=== PATIENT | male | born 1945 | race Caucasian/White ===

== ENCOUNTER 2016-06-02 15:08 | Emergency (ER) | payer OTHER ==
[~2016-06-02] VITALS: Ht 180.3 cm; Wt 109.0 kg
[~2016-06-02 15:08] MED LIST: AFRIN 12 HOUR0.05 %; ALLOPURINOL100 MG PO; ALPHA LIPOIC A200 MG PO; AMLODIPINE5 MG PO; ASPIRIN EC81 MG PO; ATORVASTATIN CA40 MG PO; BACTRIM DS1 TAB PO; BASAGLAR K100 UNIT/M; CARVEDILOL25 MG PO; CLONIDINE0.1 MG PO; CLOPIDOGREL75 MG PO; COUMADIN5 MG PO; FERROUS SULF325 M1 PO; FISH OIL1000 MG PO; FLONASE NASAL50 MCG; FUROSEMIDE20 MG PO; LOSARTAN POT50 MG PO; MULTI VIT PO; NOVOLOG FLEXPEN SC; SODIUM BICAR325 MG PO; TAMSULOSIN0.4 MG PO; TRAMADOL HYDROC50 MG PO; VENLAFAXINE HCL75 M1 PO
[2016-06-02 17:50] LABS: HEMATOCRIT 40.8 % (39.0-50.0); HEMOGLOBIN 13.7 g/dl (14.0-18.0); IMMATURE GRANULOCYTES 0.4 % (0.0-1.0); MEAN CELL VOLUME 89.9 fL CALC (80.0-100.0); MEAN CORPUSCULAR HGB 30.2 pG CALC (26.0-32.0); MEAN CORPUSCULAR HGB CONC 33.6 g/L CALC (32.0-36.0); NEUT# 8.37 thou/uL (1.82-7.42); RED BLOOD COUNT 4.54 mill/uL (4.70-6.10); RED CELL DISTRI WIDTH 13.7 % (11.5-15.5)
[2016-06-02 18:18] LABS: ALKALINE PHOSPHATASE 128 u/l (38-126); AMYLASE 55 u/l (30-110); ANION GAP 14 (6-22 (CALC)); BILIRUBIN, TOTAL 0.6 mg/dL (0.0-1.4); BUN 24 mg/dL (8-23); BUN/CREATININE RATIO 20 (12-20 (CALC)); CALCIUM 9.3 mg/dL (8.4-10.2); CARBON DIOXIDE 26 mmol/l (22-30); CHLORIDE 102 mmol/l (95-108); CREATININE 1.2 mg/dL (0.7-1.3); GFR 60 ML/MIN (>=60 (CALC)); GFR FOR AFR.AMER. > 60 ML/MIN (>=60 (CALC)); GLUCOSE 274 mg/dL (82-115); LIPASE 92 u/l (23-300); POTASSIUM 4.8 mmol/l (3.5-5.1); SGOT/AST 22 u/l (19-48); SGPT/ALT 28 u/l (11-66); SODIUM 136 mmol/l (137-146)
[2016-06-02 20:59] VITALS: BP 170/72
== END 2016-06-02 20:58 | disposition short-term general hospital (02) | DRG 123 ==
LOC: ED 15:08
PROVIDERS: Emergency Medicine
DX: H49.02 Third [oculomotor] nerve palsy, left eye (principal); R51 Headache; R11.0 Nausea